=== PATIENT | female | born 2000 | race Caucasian/White ===

== ENCOUNTER → 2019-08-07 | Outpatient (CLI) | payer OTHER ==
[~2019-08-07] MED LIST: LIDOCAINE 1% MDV 20ML VIAL As Ordered ONE; LIDOCAINE 1% SDV INJ 30 ML VIAL SC SCH
--- NOTE | 2019-08-07 04:39 | IPNPDOC ---
Text Note Date of Service The patient was seen on 08/07/19. NOTE Triage Note Mel is a 19yo with SIUP at approx 24wk who presents tonight for vaginal bleeding and pain noted during intercourse. She recently moved here from [facility] to be with her who is stationed at [place]. She has not been seen in the [place] [facility] clinic yet and the couple are working on obtaining referral to OBGYN care here. She notes that tonight when she was having intercourse "on top", she felt pain and noticed bleeding. After she arrived here she removed a clot from her labia and then experienced brisk bleeding that soaked her underwear. No ctx/loss of fluid. She feels movement. 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 no blood in vaginal vault. cervix visually closed/thick/high with no bleeding. On inspection of the left labia with clot removed, I then was able to see a separation of the uppermost aspect of the left labia minora. The laceration "popped" the labia apart so that the ends were wide apart and there was an approx 3cm long separation of the labia beneath that. I discussed the diagnosis with the patient and my recommendation for re- approximation which she agreed to. I counseled regarding all r/b/a and had the patient sign a consent form for the repair of left labial separation. 8cc of 1% lidocaine were used to inject the area surrounding the left labial separation to good anesthetic effect. 4-0 vicryl was then used to bring the ends of the uppermost labia together again with a "brevig mission stitch"- then the 4-0 vicryl was used to run the length of the laceration bringing the edges together for complete reapproximation and total hemostasis. Patient tolerated the procedure well. Assessment: Mel is a 19yo with SIUP at approx 24wk with left labial laceration that occurred with intercourse, now repaired. Vitals wnl. Reassuring status. Plan: -Discharge home -Patient given jameson-care bottle and instructed to keep the area of laceration repair clean and dry -Patient encouraged to establish care as soon as she can in our clinic, she will need labs at 28wk for glucola/CBC -Discussed return precautions for wound separation or infection or bleeding -Vaginal rest 6 weeks discussed with patient AND MD Enrique Miles Katrina D MD Aug 07, 2019 04:39
== END ==
LOC: M LDO 00:19
PROVIDERS: ATTEND Obstetrics & Gynecology
DX: O26.852 Spotting complicating pregnancy, second trimester (principal); Z3A.24 24 weeks gestation of pregnancy
CPT/HCPCS: 12002; G0378; G0463

== ENCOUNTER 2019-11-27 02:48 | Inpatient (IN) | payer OTHER ==
[2019-11-27] VITALS (42 sets, daily range): BP systolic 105–147; BP diastolic 55–92
[~2019-11-27] VITALS: Ht 165.1 cm; Wt 86.9 kg
[2019-11-27] MEDS ORDERED: LACTATED RINGER'S 1000 ML IV STA (03:31)
[2019-11-27] MEDS ORDERED: LR 1,000 ML IV SCH (03:31)
[2019-11-27] MEDS ORDERED: PROMETHAZINE INJ 25 MG/ML VIAL (J2550) IV ONE (03:45)
[2019-11-27] MEDS ORDERED: BUTORPHANOL 2 MG/ML INJ (J0595) IV ONE (03:45)
[2019-11-27] MEDS ORDERED: PRENTAB9 PO (03:49)
[2019-11-27 04:36] LABS: BASO % 0.2 % (0.0-1.0); EOS % 0.4 % (0.0-3.0); HEMATOCRIT 37.2 % (36.0-47.0); HEMOGLOBIN 12.8 g/dl (12.0-15.5); LYMPH # 1.1 10^3/uL (1.5-5.0); LYMPH % 10.9 % (24.0-44.0); MEAN CORPUSCULAR HEMOGLOBIN 31.6 pg (27.0-33.0); MEAN CORPUSCULAR HGB CONC 34.4 g/dl (32.0-36.5); MEAN CORPUSCULAR VOLUME 91.9 fl (80.0-96.0); MONO # 0.5 10^3/uL (0.0-0.8); NEUTROPHILS # 8.5 10^3/uL (1.5-8.5); NEUTROPHILS % 83.2 % (36.0-66.0); PLATELET COUNT, AUTOMATED 235 10^3/uL (150-450); RED BLOOD COUNT 4.05 10^6/uL (4.00-5.40); WHITE BLOOD COUNT 10.2 10^3/uL (4.0-10.0)
[2019-11-27 05:17] LABS: ALT/SGPT 10 U/L (12-78); BILIRUBIN,TOTAL 0.4 MG/DL (0.2-1.0); CREATININE FOR GFR 0.52 MG/DL (0.55-1.30); LDH LACTATE DEHYDROGENASE 159 U/L (84-246); URIC ACID 4.6 MG/DL (2.6-6.0)
--- NOTE | 2019-11-27 05:24 | HPEPDOC ---
Obstetrical History & Physical General Date of Admission Nov 27, 2019 at 03:34 History of Present Illness patient is a 19 yo G1 @ 40+2 wks gestation presents with regular painful contractions. denies LOF/VB. 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 BREAST: . ABDOMEN: Gravid and non-tender to touch. FETUS: fetus is vertex (VTX) by Kuldip. HEART RATE: Regular rate and rhythm. LUNGS: Clear to auscultation (CTA). EXTREMITIES: No edema/erythema/tenderness. EFW: 3200gm Vital Signs/I&O Vital Signs Date Time Temp Pulse Resp B/P (MAP) Pulse Ox O2 Delivery O2 Flow Rate FiO2 11/27/19 04:56 98.6 18 Room Air Laboratory Data 24H LABS Laboratory Tests 2 11/27/19 00:00: Immature Granulocyte % (Auto) 0.3, Neutrophils (%) (Auto) 83.2H, Lymphocytes (%) (Auto) 10.9L, Monocytes (%) (Auto) 5.0, Eosinophils (%) (Auto) 0.4, Basophils (%) (Auto) 0.2, Neutrophils # (Auto) 8.5, Lymphocytes # (Auto) 1.1L, Monocytes # (Auto) 0.5, Eosinophils # (Auto) 0.0, Basophils # (Auto) 0.0, Nucleated Red Blood Cells % (auto) 0.0 CBC/BMP Laboratory Tests 4/2/20 00:00 Pertinent Laboratoy Data Blood Type: O+ RBC Antibody Screen: Negative HIV: Negative Hepatitis B: Negative Rapid Plasma Reagin: Nonreactive Rubella: Immune Chlamydia/Gonorrhea: Negative Group B Streptococcus: Negative Anatomy Ultrasound Placenta Location: Posterior Normal Anatomy: Yes Placenta Previa: No Vaginal Examination Dilation: 4 cm Effacement: 100% Station: -1, 0 Cervical Consistency: Soft Cervical Position: Middle Assessment Heart Rate (FHR): 130 Variability: Moderate Accelerations: Positive Decelerations: None Tocometer Contractions: Yes Frequency: every 1-3 min. Assessment/Plan Assessment Patient is a 19 yo G1 @ 40+2wks gestation in labor. Discussed with patient regarding monitoring for mom and baby. risks of infection requiring antibiotics, bleeding requiring blood transfusion, emergent delivery, use of forceps or vacuum for emergent operative delivery, and episiotomy discussed with patient. Plan Admit and orient. Mandolin Repairer and consent. Diet: clear liquid Group B Streptococcus (GBS) negative. Labs and intravenous (IV) per unit protocol. pitocin/arom as needed for augmentation of labor. anesthesia consult safe for trial of labor. RUPINDER CHI DO Nov 27, 2019 05:24
--- NOTE | 2019-11-27 08:28 | IPNPDOC ---
Obstetrical Progress Note Date of Service Nov 27, 2019 Subjective Received report at [address] Dejesus and assumed care of 19yo at 40+2wks who was admitted early this morning for early labor. She has had a mostly uncomplicated , GBS Negative, O positive blood type; her only complication is obesity. Pt received stadol and phenergan for pain control at 0440 and it appears that her contractions have spaced. She does report an increased amount of pain and desires an exam and epidural. To note, there have been three mild range BPs since 0746 this morning. She denies Headache, blurry vision, RUQ pain. Objective O: VSS, mild range BPs, pt is asymptomatic FHR 130s, moderate variability, + accels, no decels noted CTX q5-7 minutes SVE: 5/C/-1 Vital Signs Date Time Temp Pulse Resp B/P (MAP) Pulse Ox O2 Delivery O2 Flow Rate FiO2 11/27/19 04:56 98.6 18 Room Air Laboratory Tests 11/27/19 00:00: White Blood Count 10.2H, Red Blood Count 4.05, Hemoglobin 12.8, Hematocrit 37.2, Mean Corpuscular Volume 91.9, Mean Corpuscular Hemoglobin 31.6, Mean Corpuscular Hemoglobin Concent 34.4, Red Cell Distribution Width 13.4, Platelet Count 235, Immature Granulocyte % (Auto) 0.3, Neutrophils (%) (Auto) 83.2H, Lymphocytes (%) (Auto) 10.9L, Monocytes (%) (Auto) 5.0, Eosinophils (%) (Auto) 0.4, Basophils (%) (Auto) 0.2, Neutrophils # (Auto) 8.5, Lymphocytes # (Auto) 1.1L, Monocytes # (Auto) 0.5, Eosinophils # (Auto) 0.0, Basophils # (Auto) 0.0, Nucleated Red Blood Cells % (auto) 0.0, Creatinine 0.52L, Uric Acid 4.6, Total Bilirubin 0.4, Aspartate Amino Transf (AST/SGOT) 17, Alanine Aminotransferase (ALT/SGPT) 10L, Lactate Dehydrogenase 159, Syphilis Serology [Pending], Hepatitis B Surface Antigen (Rapid) NEGATIVEL Assessment and Plan Status: Reassuring Group B Streptococcus: Negative Anticipate: Vaginal Delivery Additional Comments A: 19yo at 40+2wks, early labor, Category I FHT. Mild range BPs without any symptoms. P: CEFM x2 Epidural now Close monitoring of BPs. If persist with epidural, will collect Pre-E labs Continue Expectant management. If no progress at next exam, will augment with pitocin Consult with OB as indicated Anticipate IDRIS BRIDGES CNM Nov 27, 2019 08:28
[2019-11-27] MEDS ORDERED: FENTANYL 2MCG/ML ROPIVACAINE 0.2% IN 0.9% NACL 100ML IVBAG As Ordered ONE (08:41)
[2019-11-27] MEDS: FENTANYL/ROPIVACAINE/NACL BAG 100 ML EPIDURAL SCH ×2 (09:07→20:30)
[2019-11-27] MEDS ORDERED: diphenhydrAMINE INJ 50MG/ML VIAL (J1200) IV PRN (10:30)
[2019-11-27] MEDS ORDERED: ONDANSETRON 4MG/2ML VIAL (J2405) IV PRN (10:30)
[2019-11-27] MEDS ORDERED: LACTATED RINGER'S 1000 ML IV PRN (10:30)
[2019-11-27] MEDS ORDERED: REFRIGERATOR IV KEYS XX PRN (10:30)
[2019-11-27] MEDS ORDERED: ePHEDrine SULFATE 25 MG/5 ML(5MG/ML) SYRINGE IV PRN (10:30)
[2019-11-27] MEDS ORDERED: EPIDURAL/PCA KEYS XX PRN (10:30)
[2019-11-27] MEDS ORDERED: EPIDURAL COMMENT XX SCH (10:30)
[2019-11-27] MEDS ORDERED: NALOXONE INJ 0.4 MG/1 ML VIAL (J2310) IV PRN (10:30)
[2019-11-27] MEDS ORDERED: OXYTOCIN DRIP 30 UNITS in IV 1 EA IV SCH ×2 (13:00→19:32)
--- NOTE | 2019-11-27 13:06 | IPNPDOC ---
Obstetrical Progress Note Date of Service Nov 27, 2019 Subjective In room to assess labor progress of 19yo at 40+2wks, admitted this am in early labor, now comfortable with epidural in place. Pt consents for VE. Chaperoned by RN Jenni. Objective O: VSS, afebrile FHR 130s, moderate variability, + accels, no decels noted CTX very spaced VE: 5.5/100/-1, minimal change from previous exam Vital Signs Date Time Temp Pulse Resp B/P (MAP) Pulse Ox O2 Delivery O2 Flow Rate FiO2 11/27/19 10:00 80 16 119/58 (78) 11/27/19 09:15 99.9 11/27/19 04:56 Room Air Assessment Heart Rate Tracing: Category I Sterile Vaginal Examination Cervical Position: Posterior Postion/Presentation: Cephalic presentation Assessment and Plan Status: Reassuring Group B Streptococcus: Negative Anticipate: Vaginal Delivery Additional Comments A: 19yo at 40+2wks, early labor with minimal change since admission. Category I FHT and overall reassuring. P: Consented for pitocin augmentation Start pitocin per low dose protocol CEFM x2 Continue to monitor maternal/ status Consult with OB as indicated Anticipate IDRIS BRIDGES CNM Nov 27, 2019 13:06
[2019-11-27 16:25] LABS: CREATININE,RANDOM URINE 99.1 MG/DL; TOTAL PROTEIN,RANDOM URINE 177.3 MG/DL (0.0-12.0)
--- NOTE | 2019-11-27 16:25 | IPNPDOC ---
Obstetrical Progress Note Date of Service Nov 27, 2019 Subjective Late entry: At bedside for patient/labor assessment after noticing start of repetitive variables shortly after 1400. Pt comfortable with epidural in place, feeling pressure, but no desire to push at this time. She reports that she felt wet around 1400 and SROM was confirmed. Objective O: RN was at bedside at my arrival and had repositioned pt. VE Per RN was AL/ C/+1; SROM confirmed Pitocin turned of per my verbal order BPs noted to have more mild range BPs Afebrile FHR at time of this note: 145, minimal variability with periods of moderate variability, Variable decels resolved, no other decels noted, no accels noted CTX q 2-3 minutes Vital Signs Date Time Temp Pulse Resp B/P (MAP) Pulse Ox O2 Delivery O2 Flow Rate FiO2 11/27/19 10:00 80 16 119/58 (78) 11/27/19 09:15 99.9 11/27/19 04:56 Room Air Assessment Heart Rate Tracing: Category II Sterile Vaginal Examination Postion/Presentation: Cephalic presentation Assessment and Plan Status: Reassuring Group B Streptococcus: Negative Anticipate: Vaginal Delivery Additional Comments A: Active labor, Category II FHR d/t minimal variability, interventions ongoing P: Close monitoring of progressing labor status CEFM x2 500mL LR bolus Pre-E labs collected Consult with OB as indicated and will report to Dr. Nunez Anticipate IDRIS PARK CNM Nov 27, 2019 16:25
--- NOTE | 2019-11-27 19:31 | DNPDOC ---
[facility] Delivery Note Delivery Note DATE OF DELIVERY: Nov 27, 2019 PREDELIVERY DIAGNOSIS: 40w2d gestation and labor. POST DELIVERY DIAGNOSIS: Delivered. PROCEDURE: Spontaneous vaginal delivery WAREHOUSE CLERK: Dr. Alison Nunez MD ANESTHESIA: epidural ESTIMATED BLOOD LOSS: 300 mL. FINDINGS: 6 pound 11 ounce (3030g) female , Score 8/9, nuchal cord times 1. DELIVERY SUMMARY: Mel is a 19yo [id number] s/p uncomplicated at 40w2d on 27 Nov 2019 at 1824 after presenting in labor. She was 4cm on admission, had pitocin augmentation, received an epidural during active labor, and progressed to C/C/+2 at which point she began pushing. 's head delivered OA, restituted JL. Nuchal cord present, reduced. Left anterior shoulder delivered followed by posterior shoulder and corpus. had spontaneous cry, vigorous, apgars 8/9, placed on maternal abdomen- nose and mouth suctioned with bulb suction. Cord clamped x2 after 1 to 2 minutes and cut by FOB. With uterine massage and traction on the cord, placenta delivered spontaneously and intact with 3 vessel centrally inserted cord. Bimanual massage performed and IV pitocin given per protocol, fundus then firm at u-2cm and minimal bleeding noted. Inspection of perineum and vagina revealed small 1mll and bilateral superficial labial lacerations repaired with 3-0 vicryl suture in routine fashion with excellent reapproximation and complete hemostasis. She also had an area at the most superior aspect of the left labia minora that did not heal perfectly after a prior injury that occurred during intercourse earlier in - I was the physician who repaired that lesion when she presented to triage, and this was the first time I had observed it since that initial repair. I asked her if she would like me to revise it since the two tissue edges were from one another, and she said yes. So I used scissors to excise the scar tissue along the edges and then used several interrupted 4-0 vicryl stitches to completely, carefully put the edges together giving a good cosmetic effect with total hemostasis. All counts correct x2. Mom and infant doing well when I left the room. MD Enrique Miles Katrina D MD Nov 27, 2019 19:31
[2019-11-27] MEDS ORDERED: ACETAMINOPHEN TAB 650MG DOSE (2X325MG) PO PRN (19:45)
[2019-11-27] MEDS ORDERED: RHOGAM 300 MCG (1500 IU) INJ (J2790) IM SCH (19:45)
[2019-11-27] MEDS ORDERED: DIBUCAINE 1% OINTMENT 30GM TOP PRN (19:45)
[2019-11-27] MEDS ORDERED: MEASLES,MUMPS,RUBELLA VACCINE INJ (MMR-II) (90707) SC SCH (19:45)
[2019-11-27] MEDS ORDERED: DOCUSATE SODIUM 100 MG CAP PO PRN (19:45)
[2019-11-28] MEDS: ACETAMINOPHEN 500 MG TAB PO PRN ×2 (05:02→17:32)
[2019-11-28 06:19] VITALS: BP 107/63
--- NOTE | 2019-11-28 07:24 | IPNPDOC ---
Progress Note Date of Service: Nov 28, 2019 Day#: 1 Progress Note PPD 1 SUBJECT: Mel is a 19yo [id number] s/p uncomplicated at 40w2d on 27 Nov 2019 at 1824 after presenting in labor, doing well day # 1. She has been ambulating, voiding spontaneously without issue and tolerating regular diet. Breast feeding without issue. Reports lochia is like a heavy period. No f/c/n/v/CP/SOB. OBJECTIVE: VITAL SIGNS: Within normal limits, afebrile. Alert and oriented times three. Abdomen: Fundus firm at U-2. Soft, NTTP. Extremities: no pain with palpation of calves ASSESSMENT: Mel is a 19yo [id number] s/p uncomplicated at 40w2d on 27 Nov 2019 at 1824 after presenting in labor, doing well day # 1. Vitals within normal limits, afebrile, hemodynamically stable with no evidence of infection. PLAN: 1. Routine care 2. Tylenol for pain. 3. Encourage breast feeding and ambulation. 4. Desires depoprovera prior to discharge for contraception 5. Regular diet 6. Likely discharge home tomorrow if meeting all milestones Dr. Alison Nunez MD VS, I&O, 24H, Fishbone Vital Signs/I&O Vital Signs Date Time Temp Pulse Resp B/P (MAP) Pulse Ox O2 Delivery O2 Flow Rate FiO2 11/28/19 06:19 98.2 81 14 107/63 (78) 11/27/19 20:40 99 Room Air I&O- Last 24 Hours up to 6 AM 11/28/19 06:00 Output Total 700 ml Balance -700 ml Laboratory Data 24H LABS Laboratory Tests 2 11/27/19 15:46: Urine Random Creatinine 99.1, Urine Random Total Protein 177.3H 11/27/19 18:49: Serology Scanned Report Hepatitis B Testing Alison Nunez MD Nov 28, 2019 07:24
[2019-11-28] MEDS: PRENATAL VITAMINS CHEWABLE TABLET PO SCH (08:00)
[2019-11-28] MEDS ORDERED: DOCU100C16 PO (16:48)
[2019-11-28] MEDS ORDERED: DIBU10OI TOP (16:48)
[2019-11-28] MEDS ORDERED: ACET-683 PO (16:48)
[2019-11-28 17:53] VITALS: BP 116/64
[2019-11-29 06:00] VITALS: BP 115/73
[2019-11-29] MEDS ORDERED: medroxyPROGESTERone ACET IM SUSP 150 MG/ML VIAL (J1050) IM ONE (08:00)
[2019-11-29] MEDS: PRENATAL VITAMINS CHEWABLE TABLET PO SCH (08:31)
--- NOTE | 2019-11-29 08:54 | DS.PDOC ---
Discharge Summary General Date of Admission Nov 27, 2019 at 03:34 Date of Discharge Discharge Summary PROCEDURES PERFORMED DURING STAY: None. ADMITTING DIAGNOSES: 1. Term 2. Active Labor DISCHARGE DIAGNOSES: 1. Term COMPLICATIONS/CHIEF COMPLAINT: Active Labor. HISTORY OF PRESENT ILLNESS: see H&P HOSPITAL COURSE: Patient was admitted for active labor and had an uncomplicated . Bleeding like menses. Tolerating diet. Passing flatus. Able to ambulate. Pain tolerable with pain medications, which Naprosyn was added. Urinating without difficulty. DISCHARGE MEDICATIONS: Please see below. ALLERGIES: Please see below. PHYSICAL EXAMINATION ON DISCHARGE: VITAL SIGNS: Please see below. GENERAL: No acute distress HEENT: MMM BREAST: Nontender, no erythema CARDIOVASCULAR EXAMINATION: RRR RESPIRATORY EXAMINATION: Bilaterally clear ABDOMINAL EXAMINATION: Soft, appropriate tenderness, nondistended, fundus -2 EXTREMITIES: no edema, nontender LABORATORY DATA: Please see below. IMAGING: none PROGNOSIS: Good ACTIVITY: Pelvic rest. DIET: Regular DISCHARGE PLAN: Home DISPOSITION: . DISCHARGE INSTRUCTIONS: 1. See attached. ITEMS TO FOLLOWUP ON ON OUTPATIENT: 1. 6wks in clinic. DISCHARGE CONDITION: Stable. TIME SPENT ON DISCHARGE: Greater than 10 minutes. Vital Signs/I&Os Vital Signs Date Time Temp Pulse Resp B/P (MAP) Pulse Ox O2 Delivery O2 Flow Rate FiO2 11/28/19 06:19 98.2 81 14 107/63 (78) 11/27/19 20:40 99 Room Air I&O- Last 24 Hours up to 6 AM 11/28/19 06:00 Output Total 700 ml Balance -700 ml Laboratory Data Labs 24H Laboratory Tests 2 11/27/19 18:49: Serology Scanned Report Hepatitis B Testing Discharge Medications Scheduled No.137/Iron/Folic Acd ( Vitamin Tablet) 1 Each Tablet, 1 TAB PO DAILY, (Reported) Scheduled PRN Acetaminophen (Acetaminophen) 500 Mg Tablet, 1,000 MG PO Q6HP PRN for PAIN LEVEL 6-10 Dibucaine (Dibucaine) 28 Gm Oint...g., 0 DOSE TOP Q4HP PRN for PAIN Docusate Sodium (Docusate Sodium) 100 Mg Capsule, 100 MG PO QHSP PRN for CONSTIPATION Allergies Coded Allergies: No Known Allergies (Unverified , 11/27/19) Rosalind Jamison MD Nov 28, 2019 16:47
--- NOTE | 2019-11-29 08:55 | IPNPDOC ---
Progress Note Date of Service: Nov 29, 2019 Day#: 2 Progress Note SUBJECT: Patient is a -year-old 1 now Para 1 status post uncomplicated spontaneous vaginal delivery with post superficial labial laceration and repair, doing well day # 2. She has been ambulating, voiding spontaneously without issue and tolerating regular diet. Breast feeding without issue. Reports lochia is like a normal period. Patient is ambulating well. Reports some cramping with . C/o contraction pain not controlled with Tylenol. OBJECTIVE: VITAL SIGNS: Within normal limits, afebrile. GENERAL: No acute distress HEENT: Mucous membranes are moist BREAST: Nontender, no erythema CARDIOVASCULAR: RRR RESPIRATORY: Bilaterally clear ABDOMINAL EXAMINATION: Soft, appropriate tenderness, nondistended, fundus -2 PERINEUM: Intact, minimal lochia EXTREMITIES: no edema, nontender ASSESSMENT: Patient is a -year-old 1 now Para 1 status post uncomplicated spontaneous vaginal delivery with post superficial labial laceration and repair, doing well day # 2. Vitals within normal limits, afebrile, hemodynamically stable with no evidence of infection. PLAN: 1. Discharge to home today if pain controlled. 2. Tylenol for pain and will add Naprosyn. 3. Encourage breast feeding and ambulation. 4. Routine PP visit in 6 weeks in clinic. . Discussed return precautions at length. VS, I&O, 24H, Fishbone Vital Signs/I&O Vital Signs Date Time Temp Pulse Resp B/P (MAP) Pulse Ox O2 Delivery O2 Flow Rate FiO2 11/28/19 06:19 98.2 81 14 107/63 (78) 11/27/19 20:40 99 Room Air I&O- Last 24 Hours up to 6 AM 11/28/19 06:00 Output Total 700 ml Balance -700 ml Laboratory Data 24H LABS Laboratory Tests 2 11/27/19 18:49: Serology Scanned Report Hepatitis B Testing Rosalind Jamison MD Nov 28, 2019 16:42
[2019-11-29] MEDS ORDERED: NAPROXEN 250 MG TAB PO SCH (09:00)
== END 2019-11-29 13:35 | disposition home or self-care (01) | DRG 807 ==
LOC: M LDO 02:48 → M LDI 03:34 → M OBS 20:39
PROVIDERS: ADMIT Obstetrics & Gynecology; ATTEND Obstetrics & Gynecology
PROC: 10E0XZZ Delivery of Products of Conception, External Approach (ICD-10-PCS; principal; 2019-11-27)
PROC: 0HQ9XZZ Repair Perineum Skin, External Approach (ICD-10-PCS; 2019-11-27)
DX: O48.0 Post-term pregnancy (principal); Z37.0 Single live birth; Z3A.40 40 weeks gestation of pregnancy; O69.82X0 Labor and delivery complicated by other cord entanglement, without compression, not applicable or unspecified; O70.0 First degree perineal laceration during delivery